=== PATIENT | male | born 1960 | race Caucasian/White ===

== ENCOUNTER 2024-05-29 10:12 | Emergency (ER) | payer OTHER ==
[2024-05-29 10:33] VITALS: BP 157/97; PULSE 91; RESP 17; TEMP 98.4; BMI 23.1
[2024-05-29 12:00] LABS: INR 1.04 (0.83-1.09)
[2024-05-29 12:03] LABS: ACTIVATED PTT 30.8 SECONDS (25.2-36.5)
[2024-05-29 12:22] LABS: POTASSIUM 3.8 mmol/L (3.5-5.1)
[2024-05-29 12:24] LABS: CALCIUM 10.1 mg/dL (8.5-10.1)
[2024-05-29 12:25] LABS: ALBUMIN 4.6 g/dl (3.4-5.0); BLOOD UREA NITROGEN 10.5 mg/dL (7-18); MAGNESIUM 2.1 mg/dL (1.8-2.4)
[2024-05-29 12:28] LABS: CREATININE 0.9 mg/dL (0.55-1.3)
[2024-05-29 12:30] LABS: TOT PROT 8.2 g/dl (6.4-8.2)
[2024-05-29] MEDS ORDERED: FAMOTIDINE 20 MG TABLET ONE (12:37)
[2024-05-29] MEDS ORDERED: MAG HYDROX/AL HYDROX/SIMETH 30 ML UNIT-DOSE CUP ONE (12:38)
[2024-05-29] MEDS: MAG HYDROX/AL HYDROX/SIMETH -MYLANTA- ORAL SUSPENSION PO ONE (12:42)
[2024-05-29] MEDS: FAMOTIDINE 20 MG TABLET PO ONE (12:42)
== END 2024-05-29 13:08 | disposition home or self-care (01) ==
LOC: JER 10:12
DX: R10.13 Epigastric pain (principal); R07.89 Other chest pain
CPT/HCPCS: 71046-TC-FY; 80053; 83690; 83735; 84484; 85610; 85730; 93005; 93010; 99285-25